=== PATIENT | male | born 1990 | race Caucasian/White ===

== ENCOUNTER 2022-09-17 22:28 | Emergency (ER) | payer OTHER, SELFPAY ==
[2022-09-17 22:28] VITALS: BP 125/72; PULSE 68; RESP 16; TEMP 36.7; O2SAT 98; BMI 25.8
[2022-09-18] VITALS: BP 108/69; PULSE 62; RESP 16; O2SAT 98
--- NOTE | 2022-09-18 01:47 | ED_ITS ---
HPI - Extremity Injury (Lower) General Chief Complaint: Extremity Injury, Lower Stated Complaint: Toe inj Time Seen by Provider: 09/18/22 01:47 Source: patient Mode of arrival: ambulatory Limitations: no limitations History of Present Illness HPI Narrative: 32-year-old male presents to the emergency department status post stepping on a rusy nail with his right foot (tells me it punctured his right second toe) just prior to arrival. Nail was removed and area was well cleanseed however reporting some pain and discomfort. Pain is worse with ambulation better at rest rates the pain as discomfort and minimal. Patient denies numbness, tingling, fevers, chills, difficulty moving right foot or toes. Patient not sure of tetanus status. Related Data Previous Rx's Medication Instructions Recorded amoxicillin 875 mg-potassium 1 tab PO BID 7 days #14 tabs 09/18/22 clavulanate 125 mg tablet levofloxacin 750 mg tablet 750 mg PO DAILY 7 days #7 tabs 09/18/22 Allergies Allergy/AdvReac Type Severity Reaction Status Date / Time No Known Allergies Allergy Unverified 08/10/20 16:03 Review of Systems Review of Systems: Constitutional : No Fever, No Chills, Cardiovascular : No Chest Pain, No SOB Respiratory : No Dyspnea Gastrointestinal : No abdominal pain Musculoskeletal : No Joint Swelling Skin : No rash, positive skin puncture wound Neuro : No Weakness, No Numbness Psych : No SI/HI Yes all other systems are reviewed and are negative [facility] Past Medical History Attestation statement: The following information was validated with the patient. Source: old records reviewed and nursing notes reviewed Social History Social History Alcohol intake: never Patient Tobacco Use Status: Never used Tobacco Use of substances other than those prescribed or required for medical reasons: No Physical Exam Vital Signs: Vital Signs: Last Vital Signs Temp 98.0 F 09/17/22 22:28 Pulse 68 09/17/22 22:28 Resp 16 09/17/22 22:28 BP 125/72 09/17/22 22:28 Pulse Ox 98 09/17/22 22:28 O2 Del Method 09/17/22 22:28 BMI result Body Mass Index 25.8 vss Appearance: Alert.? Oriented X3.? No acute distress.? Head: Normocephalic, atraumatic, no step-offs or deformities Eyes: Pupils equal, round and reactive to light.? CVS: Normal heart rate and rhythm.? Pulses normal.? Respiratory: No respiratory distress.? Breath sounds normal.? Abdomen: Soft and nontender.? Skin: Skin warm and dry.? Normal skin color.? Normal skin turgor.? Extremities: No discoloration to bilateral lower5/5 extremities. strength to bilateral upper and lower extremities 2+ DP, PT,AT pulses equal and b/l. Normal cap refill to b/l lower extremities. Normal sensation. No foot drop. No evidence of FB to affecte extemity + small puncture wound noted to the right distal aspect of second toe. Neuro: Oriented X 3.? No motor deficit.? No sensory deficit. CN 2-12 intact . Ambulating with steady gait normal coordination. Course Reevaluation(s) Reevaluation #1: Patient will be discharged home on antibiotics to cover for Pseudomonas. Advised patient to return with new or worsening symptoms. Educated on worsening signs symptoms and when to return. Patient will be given his Boostrix shot. Time: 01:50 Reevaluation #2: Patient refused xray. I do not suspect fx or dislocaiton. Educated him that we could miss 1 of these diagnosis of benign obtain x-ray tells me that his pain he does not want. He tells me he does not suspect that there is a foreign body in there. Refusing x-ray. Time: 01:57 MDM - Extremity Injury (Lower) [facility] Narrative Medical decision making narrative: 0150 32-year-old male presents status post puncture wound to right foot w/ rosa nail [employer]. Unsure of tetanus status. Denies numbness or tingling. Physical examination significant for No discoloration to bilateral lower5/5 extremities. strength to bilateral upper and lower extremities 2+ DP, PT,AT pulses equal and b/l. Normal cap refill to b/l lower extremities. Normal sensation. No foot drop. No evidence of FB to affecte extemity + small puncture wound noted to the right distal aspect of second toe. Plan at this time is to obtain a plain film. Medical Records Attestation: I reviewed the patient's medical records. Lab Data Attestation: I reviewed the patient's lab results. Critical Care Time Critical Care Time Critical Care Time: No Discharge Plan Discharge Clinical Impression: Puncture wound of foot Patient Disposition: Home, Self-Care Instructions: Puncture Wound (ED) Additional Instructions: Take your medications as prescribed. If you were prescribed antibiotics today, it is important that you take your medication to their entirety, do not skip any doses, do not finish them early. Follow-up with your primary care provider this week. Return to the emergency department with new or worsening symptoms. Such as fevers, chills, chest pain, shortness of breath, nausea, vomiting, dizziness, headache, vision changes, lethargy In case of emergency call 911 Levofloxacin is an antibiotic that has been sent to her pharmacy, if you experience any pain to your extremities, joints, or tendons please return for further evaluation, black box warning for tendon rupture. Please refrain from physical activity while taking this antibiotic or until medically cleared. Prescriptions: New levofloxacin 750 mg tablet 750 mg PO DAILY 7 Days Qty: 7 0RF amoxicillin-pot clavulanate 875-125 mg tablet 1 tab PO BID 7 Days Qty: 14 0RF Referrals: Physician,None [Primary Care Provider] - 2 days Stand Alone Forms: Work/School Release
[2022-09-18] MEDS: Diphth,Pertus(ACell),Tet Adult 0.5 ML SYRINGE IM (01:54)
== END 2022-09-18 02:02 | disposition home or self-care (01) ==
LOC: HO.ED 09-18 02:00
PROVIDERS: Emergency Provider Emergency Medicine
DX: S91.331A Puncture wound without foreign body, right foot, initial encounter (principal); S90.811A Abrasion, right foot, initial encounter; W45.0XXA Nail entering through skin, initial encounter; Y93.9 Activity, unspecified; Y92.9 Unspecified place or not applicable; Y99.9 Unspecified external cause status
CPT/HCPCS: 90471; 90715; 99284

== ENCOUNTER 2024-09-07 11:58 | Emergency (ER) | payer SELFPAY ==
--- NOTE | ~2024-09-07 | CT_ITS ---
EXAMINATION: CT HEAD WITHOUT CONTRAST CLINICAL INFORMATION: Headache, head pressure COMPARISON: None available. TECHNIQUE: Contiguous axial imaging was performed from the skull base to vertex without intravenous administration of contrast. This CT examination was performed using dose optimization techniques as appropriate, variously including the following: *Automated exposure control *Adjustment of mA and/or kV according to patient size (this includes techniques or standardized protocols for targeted exams where dose is matched to indication/reason for exam; i.e. extremities or head) *Use of iterative reconstruction technique DLP: 889 mGy-cm FINDINGS: The ventricles and sulci are normal in size and configuration. No acute hemorrhage, mass effect or shift is evident. Soliz-white differentiation is maintained. In the posterior fossa, the brainstem, cerebellum and fourth ventricle image normally. The orbits and calvarium are intact. Small Retention cysts or polyps are noted within both the left and right maxillary sinuses. CT/CT head/brain wo IV con IMPRESSION: 1. Unremarkable noncontrast brain CT. No acute hemorrhage, mass effect or shift. Electronically signed by: Keshav Chatman MD 09/07/2024 01:33 PM EDT
[2024-09-07 12:03] VITALS: BP 124/80; PULSE 76; O2SAT 99
[2024-09-07 12:07] VITALS: BP 126/75; PULSE 76; RESP 16; TEMP 37; O2SAT 98; BMI 26.3
--- NOTE | 2024-09-07 12:07 | ED_ITS ---
HPI - General Adult General Chief complaint: Headache Stated complaint: PRESSURE HEAD/EARS,NO INJURY,WEARS PROTECT @ WORK Time Seen by Provider: 09/07/24 17:21 Source: patient Mode of arrival: ambulatory Limitations: no limitations History of Present Illness ED Provider: ELENA HARTMAN PA-C HPI narrative: 34 year old male with no significant pmhx presents to the ED today via EMS for evaluation of light headedness while at work [employer] in ED. He reports episode of lightheadedness and head pressure while working next to a very loud machine today at work. States he felt like he was going to pass out with associated blurred vision. He was able to remove himself from the situation, sit down and his symptoms completely resolved after a few minutes. He denies loss of consciousness or fall to the ground. His employer urged him to come to the ED for further evaluation. Admits to intermittent lightheadedness times years however has never been medically evaluated for this. Also endorses increased stress recently and is concerned this may be related. Denies fever, chills, vision changes, hearing changes, discharge from the ears, difficulty ambulating. Denies recent illness. Denies recent falls, head strike or injury. He is currently asymptomatic in ED and has no physical complaints. Related Data Previous Rx's ?Medication ?Instructions ?Recorded amoxicillin 875 mg-potassium 1 tab PO BID 7 days #14 tabs 09/18/22 clavulanate 125 mg tablet levofloxacin 750 mg tablet 750 mg PO DAILY 7 days #7 tabs 09/18/22 meclizine 12.5 mg tablet 12.5 mg PO TID PRN dizziness #10 09/07/24 tabs Allergies Allergy/AdvReac Type Severity Reaction Status Date / Time No Known Allergies Allergy Verified 09/07/24 12:09 Review of Systems 2 Review of Systems: Constitutional: No fever, chills, fatigue, night sweats, weight changes ENT/Mouth: No ear pain, hearing loss, nasal congestion, sinus pain, rhinorrhea, sore throat Eyes: No eye pain, swelling, redness, vision changes, discharge Cardio: No chest pain, palpitations, ALMEIDA, orthopnea, peripheral edema Pulm: No SOB, cough, sputum, wheezing, dyspnea, hemoptysis GI: No nausea, vomiting, hematemesis, abdominal pain, diarrhea, constipation, hematochezia, melena : No irregular bleeding, dysuria, frequency, urgency, hesitancy, hematuria, flank pain, urinary flow changes, urinary incontinence or retention MSK: No back pain, neck pain, joint pain, myalgias Skin: No lesions, rashes Neuro: No weakness, numbness, paresthesias, LOC, dizziness, headache Psych: No anxiety/panic, depression, SI/HI, AH/VH All other systems reviewed and are negative. [facility] Past Medical History Attestation statement: The following information was validated with the patient. Source: old records reviewed and nursing notes reviewed Social History Social History Alcohol intake: never Patient Tobacco Use Status: Never used Tobacco Advance Directives: No Physical Exam ED Vital Signs: Vital Signs - 24 hr 09/07/24 12:07 09/07/24 19:16 09/07/24 19:17 Temperature 98.6 F 97.6 F 97.6 F Pulse Rate 76 76 76 Respiratory Rate 16 18 18 Blood Pressure 126/75 107/68 107/68 Pulse Oximetry 98 98 98 Oxygen Delivery Method Room Air Room Air Room Air BMI result Body Mass Index 26.3 Vital signs stable General: Well appearing, in no acute distress. Skin: Warm, dry, intact. No rashes or lesions. Head: Normocephalic, atraumatic. EENT: Hearing is intact b/l. Impacted cerumen to left EAC. Unable to visualize TM. Right EAC/TM WNL. Conjunctiva clear. PERRLA. EOM intact. Moist mucous membranes.? Neck: Supple without LAD Cardiac: Chest wall symmetric. RRR. Lungs: Normal respiratory effort without accessory muscle use Abdomen: Soft, non-tender, non-distended. No rebound tenderness or guarding. Ext: Upper and lower extremities atraumatic, without tenderness, deformity, swelling or erythema. Full ROM throughout. No calf tenderness bilaterally. Neuro: AOx3. Normal speech. Strength 5/5 intact throughout. Sensation intact to light touch. NV intact distally. Finger to nose, heel to park intact. Ambulating with steady gait. No nystagmus. Psych: Appropriate mood and affect. Responds appropriately to questions. Course Course Course Narrative: This is an RME: Additional HPI, ROS, PE not included below will be deferred to primary provider. RME assessment and note performed by: Liberty Lucio PA-C This is a 34-year-old male who presents emergency department with sudden onset pressure in the back of his head which started. No trauma, injury, or falls. He was standing next to a machine that was making alot of noise . Reports that he had blurred vision. Reporting the severe pressure lasted for approximately several minutes and resolved on its own, still reporting a soreness sensation still. No headaches. He states that he always has a pressure-like sensation in his head however has not been medically evaluated for this. He is neurologically intact, no focal deficits. Neck with full ROM, no nuchal rigidity. Plan: CT head, basic labs, further ER evaluation needed. Reevaluation(s) Reevaluation #1: 2070 -- CBC without leukocytosis or left shift. no anemia, H&H stable. chemistry without acute electrolyte abnormality requiring intervention. Negative for COVID, flu, RSV. CT head/brain without mass or bleed. > patient with large amount of cerumen impacted in left EAC. soaked with colace. attempted irrigation without success. able to manually disimpact with currette. Left TM intact without edema, effusion or perforation. patient reports relief following cerumen disimpaction. given complete resolution of symptoms and unremarkable work up, I feel comfortable discharging patient home at this time. will send meclizine for patient to trial if symptoms return. he is agreeable with this. i have also provided him with referral to ENT to establish care. Medications Administered Discontinued Medications Generic Name Dose Route Start Last Admin Trade Name Dionteq PRN Reason Stop Dose Admin Docusate Sodium 100 mg 09/07/24 17:38 09/07/24 17:57 Docusate Sodium 100 Mg/10 Ml Liquid PO 09/07/24 17:39 100 mg ONCE ONE Administration Procedures Ear Wax Removal Left Ear: Cerumenolytic Used: Colace Results: Re-examined: some cerumen remains TM Examination: TM(s) intact, normal appearance Ear Canal Exam: other (erythematous) Patient Tolerated Procedure: well Complications: no problems Technique: ear canal irrigated and ear canal curetted Medical Decision Making Medical Decision Making MDM Narrative: 34 year old male with no significant pmhx presents to the ED today via EMS for evaluation of light headedness while at work [employer] in ED. Vital signs stable. Vital signs stable. Patient is nontoxic-appearing and in no acute distress. His exam is nonfocal cerebellum is intact. PERRLA. No nystagmus noted. He is ambulating with steady gait. His left EAC has noted cerumen impaction. Unable to visualize TM. No obvious discharge or edema within the EAC. Right EAC without erythema, edema or discharge. TM intact without perforation. Differential diagnosis includes anemia, electrolyte abnormality, dehydration, peripheral vertigo, anxiety, vasovagal presyncope, cerumen impaction, ruptured TM. Lower suspicion for intracranial mass. Presentation not consistent with ICH, CVA/TIA, cerebellar stroke. Plan for labs, CT head, cerumen disimpaction. Differential Diagnosis Differential Diagnoses: The differential diagnosis associated with the presentation includes as above Admission/Observation not indicated. Lab Data MDM Lab Attestation statement: I reviewed the patient's lab results. as above 09/07/24 13:04 09/07/24 13:04 Labs: Lab Results 09/07/24 Range/Units 13:04 WBC 6.5 (4.8-10.8) X10*3/uL RBC 5.29 (4.60-5.80) X10*6/uL Hgb 14.8 (14.0-18.0) g/dl Hct 43.2 (42.0-52.0) % MCV 81.7 (80.0-98.0) fL MCH 28.0 (27.0-33.0) pg MCHC 34.3 (31.0-36.0) g/dl RDW 13.0 (11.0-16.0) % Plt Count 289 (160-400) X10*3/uL MPV 9.8 (9.4-12.4) fL Immature Gran % (Auto) 0.2 (0.0-0.4) % Neut % (Auto) 59.9 (45-73) % Lymph % (Auto) 29.4 (20-40) % [place] % (Auto) 8.5 (2-11) % Eos % (Auto) 1.5 (0-4) % Baso % (Auto) 0.5 (0-2) % Lymph # (Auto) 1.9 (1.2-4.9) X10*3/uL [place] # (Auto) 0.6 (0.1-1.2) X10*3/uL Eos # (Auto) 0.1 (0.0-0.4) X10*3/uL Baso # (Auto) 0.0 (0.0-0.2) X10*3/uL Abs Immat Gran (auto) 0.01 (0.00-0.03) X10*3/uL Absolute Neuts (auto) 3.9 (2.0-8.3) x10*3/uL Absolute Nucleated RBC 0.000 (0.0-0.012) X10*3/uL Nucleated RBC % (auto) 0.0 (0.0-0.2) /100WBC Sodium 141 (135-145) mmol/L Potassium 3.6 (3.3-5.1) mmol/L Chloride 104 (96-108) mmol/L Carbon Dioxide 31 H (22-29) mmol/L Anion Gap 10 L (12-20) BUN 16 (9-16) mg/dL Creatinine 1.01 (0.5-1.4) mg/dL Estim Creat Clear Calc 94.5 Estimated GFR > 60 Random Glucose 94 (60-115) mg/dL Calcium 9.4 (8.4-10.2) mg/dL Total Bilirubin 1.1 H (0.0-1.0) mg/dL AST 23 (5-37) U/L ALT 23 (0-40) U/L Alkaline Phosphatase 84 (39-117) U/L Total Protein 7.8 (6.5-8.0) g/dL Albumin 4.6 (3.5-5.0) g/dL Influenza Type A (PCR) NEGATIVE (Negative) Influenza Type B (PCR) NEGATIVE (Negative) RSV RNA Qual (PCR) NEGATIVE (Negative) SARS-CoV-2 RNA (RT-PCR) NEGATIVE (Negative) Independent Interpretation I performed an independent interpretation of an: CT Scan Interpretation: CT head/ brain without bleed or mass, agree with radiologist's interpretation. Radiology Impression Discussion of test interpretation with radiology: I have reviewed the radiologist's reading. Radiologist Impression: EXAMINATION: CT HEAD WITHOUT CONTRAST CLINICAL INFORMATION: Headache, head pressure COMPARISON: None available. TECHNIQUE: Contiguous axial imaging was performed from the skull base to vertex without intravenous administration of contrast. This CT examination was performed using dose optimization techniques as appropriate, variously including the following: *Automated exposure control *Adjustment of mA and/or kV according to patient size (this includes techniques or standardized protocols for targeted exams where dose is matched to indication/reason for exam; i.e. extremities or head) *Use of iterative reconstruction technique DLP: 889 mGy-cm FINDINGS: The ventricles and sulci are normal in size and configuration. No acute hemorrhage, mass effect or shift is evident. Soliz-white differentiation is maintained. In the posterior fossa, the brainstem, cerebellum and fourth ventricle image normally. The orbits and calvarium are intact. Small Retention cysts or polyps are noted within both the left and right maxillary sinuses. CT/CT head/brain wo IV con IMPRESSION: 1. Unremarkable noncontrast brain CT. No acute hemorrhage, mass effect or shift. Electronically signed by: Keshav Chatman MD 09/07/2024 01:33 PM EDT RP Independent Historian Clinical information obtained from an independent historian. History obtained from or confirmed by: Spouse () External Record Review External record reviewed: Inpatient record Prescription Management I considered prescription management with: Other (meclizine) Social Determinants Patient?s care significantly limited by Social Determinants of Health including: Other Social Determinant of Health Critical Care Time Critical Care Time Critical Care Time: No Discharge Plan Discharge Clinical Impression: Impacted cerumen, left ear Patient Disposition: Home, Self-Care Additional Instructions: Your blood work today is reassuring. The CT scan of your head is normal. You were noted to have impacted cerumen in your left year. I have provided you with a referral to an ENT. Call them to establish care. They will not call you. I have also provided you with a referral to a neurologist. Call them to establish care. They will not call you. If you begin to have episodes of dizziness again, I have sent meclizine to your pharmacy for you to trial. As discussed, if your symptoms persist or worsen, please return to the ED for further evaluation. In the case of an emergency call 911. Prescriptions: New meclizine 12.5 mg tablet 12.5 mg PO TID PRN (Reason: dizziness) Qty: 10 0RF No Action levofloxacin 750 mg tablet 750 mg PO DAILY 7 Days Qty: 7 0RF amoxicillin-pot clavulanate 875-125 mg tablet 1 tab PO BID 7 Days Qty: 14 0RF Referrals: [facility] [place] Neuro/Sleep [Provider Group] Boy Kaminski [Physician] - Interventions: ED Discharge Assessment Last Done: 09/07/24 19:17 Discharge Date/Time: 09/07/24 19:17 Print Language: Albanian
[2024-09-07 13:08] LABS: MANUAL DIFF FLAG NO
[2024-09-07 13:09] LABS: Basophils Percent Auto 0.5 % (0-2); Eosinophils Absolute Auto 0.1 X10*3/uL (0.0-0.4); Eosinophils Percent Auto 1.5 % (0-4); Hematocrit 43.2 % (42.0-52.0); Hemoglobin 14.8 g/dl (14.0-18.0); Imm Gran Abs Auto 0.01 X10*3/uL (0.00-0.03); Imm Gran Pct Auto 0.2 % (0.0-0.4); Lymphocytes Absolute Auto 1.9 X10*3/uL (1.2-4.9); Lymphocytes Percent Auto 29.4 % (20-40); Mean Corpuscular HGB Conc 34.3 g/dl (31.0-36.0); Mean Corpuscular Volume 81.7 fL (80.0-98.0); Mean Platelet Volume 9.8 fL (9.4-12.4); Monocytes Absolute Auto 0.6 X10*3/uL (0.1-1.2); Monocytes Percent Auto 8.5 % (2-11); Neutrophils Absolute Auto 3.9 x10*3/uL (2.0-8.3); Neutrophils Percent Auto 59.9 % (45-73); Platelet Count 289 X10*3/uL (160-400); Red Blood Count 5.29 X10*6/uL (4.60-5.80); White Blood Count 6.5 X10*3/uL (4.8-10.8)
[2024-09-07 13:25] LABS: Alanine Aminotransferase 23 U/L (0-40); Albumin Level 4.6 g/dL (3.5-5.0); Alkaline Phosphatase 84 U/L (39-117); Anion Gap 10 (12-20); Aspartate Amino Transferase 23 U/L (5-37); Bilirubin Total 1.1 mg/dL (0.0-1.0); Blood Urea Nitrogen 16 mg/dL (9-16); Calcium 9.4 mg/dL (8.4-10.2); Carbon Dioxide 31 mmol/L (22-29); Chloride 104 mmol/L (96-108); Creatinine Clr Calc Pharmacy 94.5; Estimated Glomerular Filt Rate > 60; Glucose Random 94 mg/dL (60-115); Potassium 3.6 mmol/L (3.3-5.1); Sodium 141 mmol/L (135-145); Total Protein 7.8 g/dL (6.5-8.0)
[2024-09-07 14:04] LABS: Influenza A PCR NEGATIVE (Negative); Influenza B PCR NEGATIVE (Negative); Resp Syncy Virus RNA Qual PCR NEGATIVE (Negative); SARS COV2 PCR INHOUSE NEGATIVE (Negative)
[2024-09-07] MEDS: Docusate Sodium 100 MG/10 ML LIQUID PO (17:57)
[2024-09-07 19:16] VITALS: BP 107/68; PULSE 76; RESP 18; TEMP 36.4; O2SAT 98
[2024-09-07 19:17] VITALS: BP 107/68; PULSE 76; RESP 18; TEMP 36.4; O2SAT 98
== END 2024-09-07 19:17 | disposition home or self-care (01) ==
PROVIDERS: Physician Assistant Medical; Emergency Provider Emergency Medicine
DX: H61.22 Impacted cerumen, left ear (principal); R51.9 Headache, unspecified; R42 Dizziness and giddiness; Z03.818 Encounter for observation for suspected exposure to other biological agents ruled out; Z79.899 Other long term (current) drug therapy
CPT/HCPCS: 0241U; 36415; 69209; 70450; 80053; 85025; 99283; 99284